=== PATIENT | female | born 1975 | race Hispanic/Latino ===

== ENCOUNTER 2020-10-24 10:21 | Emergency (ER) | payer BC ==
[~2020-10-24] VITALS: Ht 147.3 cm; Wt 107.2 kg
[2020-10-24] MEDS ORDERED: HYDROCODONE/APAP 5MG-325MG TAB PO ONE (11:00)
[2020-10-24] MEDS ORDERED: CYCLOBENZAPRINE HCL 10 MG TAB PO ONE (11:00)
[2020-10-24] MEDS ORDERED: KETOROLAC TROMETHAMINE 60 MG/2 ML VIAL IM ONE (11:00)
[2020-10-24] MEDS ORDERED: CYCLOBENZAPRINE HCL 10 MG TAB ONE (11:37)
[2020-10-24] MEDS ORDERED: HYDROCODONE/APAP 5MG-325MG TAB ONE (11:37)
[2020-10-24] MEDS ORDERED: KETOROLAC TROMETHAMINE 30 MG/ML VIAL ONE (11:37)
[2020-10-24] MEDS ORDERED: CYCLOBENZAPRINE5 MG PO (12:23)
[2020-10-24] MEDS ORDERED: CEFDINIR300 MG PO (12:23)
[2020-10-24] MEDS ORDERED: NAPROSYN500 MG PO (12:23)
[2020-10-24 12:32] VITALS: BP 111/70
== END 2020-10-24 12:37 | disposition home or self-care (01) ==
LOC: FSED 10:27
DX: M54.5 Low back pain (principal); M79.18 Myalgia, other site; N39.0 Urinary tract infection, site not specified; I10 Essential (primary) hypertension; E11.9 Type 2 diabetes mellitus without complications
CPT/HCPCS: 81003; 81025; 96372; 99283; J1885